=== PATIENT | female | born 1965 | race Asian ===

== ENCOUNTER 2021-07-08 12:11 | Observation (INO) | payer OTHER, SELFPAY ==
[2021-07-08] VITALS (12 sets, daily range): BP systolic 138–167; BP diastolic 72–95; PULSE 55–80; RESP 17–18; TEMP 36.6–36.8; O2SAT 94–99; BMI 22.2
[2021-07-08] MEDS: ONDANSETRON 4 MG/2 ML INJ IV ×2 (12:52→15:55)
[2021-07-08 12:59] LABS: Add Manual Diff / Slide Review NO; Basophils Absolute Auto 100 /uL (0-100); Basophils Percent Auto 0.6 % (0-2); Eosinophils Absolute Auto 0 /uL (0-450); Hemoglobin 15.3 g/dL (12.0-16.0); Lymphocytes Absolute Auto 1000 /uL (1100-4500); Lymphocytes Percent Auto 10.7 % (25-40); Mean Corpuscular Hemoglobin 28.9 PG (26-34); Mean Corpuscular Volume 85.1 fL (80-100); Monocytes Absolute Auto 200 /uL (0-900); Monocytes Percent Auto 2.3 % (3-14); Neutrophils Absolute Auto 7800 /uL (1500-7000); Neutrophils Percent Auto 86.4 % (50-75); Platelet Count 207 X10^3/uL (150-400); Red Blood Cell Count 5.28 X10^6/uL (4.0-5.2); Red Cell Distribution Width 13.1 % (11.6-14.8)
[2021-07-08 13:09] LABS: Alanine Aminotransferase 26 IU/L (<35); Albumin 4.9 g/dL (3.5-5.0); Albumin Globulin Ratio 1.3 (1.0-2.8); Alkaline Phosphatase 75 U/L (38-126); Aspartate Aminotransferase 32 IU/L (14-36); BUN Creatinine Ratio 24.1 (6-22); Bilirubin Total 0.5 mg/dL (0.2-1.3); Blood Urea Nitrogen 14 mg/dL (7-17); Calcium 9.3 mg/dL (8.4-10.2); Carbon Dioxide 25 mmol/L (22-32); Chloride 105 mmol/L (98-107); Estimated Glomerular Filt Rate > 60.0 mL/min (>60); Globulin 3.9 g/dL (1.7-4.1); Glucose 140 mg/dL (70-100); HEMOLYSIS < 15 (0-50); Lipase 150 U/L (23-300); Potassium 3.7 mmol/L (3.4-5.1); Sodium 139 mmol/L (137-145); Total Protein 8.8 g/dL (6.3-8.2)
[2021-07-08 13:16] LABS: Amorphous Sediment Urine 2+; Bacteria Urine None Seen; Culture Indicated Urine Cult Not Indicated; RBC Urine None Seen (0-5/HPF); WBC Urine None Seen (0-5/HPF)
--- NOTE | 2021-07-08 13:42 | DI.CT.S_ITS ---
PROCEDURE: CT HEAD/BRAIN WO CON INDICATIONS: dizzyness TECHNIQUE: Noncontrast 4.5 mm thick angled axial sections acquired from the foramen magnum to the vertex, with coronal and sagittal reformats. For radiation dose reduction, the following was used: automated exposure control, adjustment of mA and/or kV according to patient size. COMPARISON: None. FINDINGS: Image quality: Excellent. CSF spaces: Basal cisterns are patent. No extra-axial fluid collections. Ventricles are normal in size and shape. Brain: No midline shift. No intracranial masses or hemorrhage. Ellison-white matter interface is normal. Skull and face: Calvarium and visualized facial bones are intact, without suspicious lesions. Sinuses: Visualized sinuses and mastoids are clear. IMPRESSION: No acute intracranial process. Dictated by: Shiloh Samuels M.D. on 07/08/2021 at 14:13 Approved by: Shiloh Samuels M.D. on 07/08/2021 at 14:13
--- NOTE | 2021-07-08 15:39 | ED.DIZZY ---
HPI - Dizziness General Chief Complaint: Dizziness Stated Complaint: Vomiting, Sent from [facility] Time Seen by Provider: 07/08/21 14:30 Source: patient Mode of arrival: Ambulatory History of Present Illness HPI Narrative: 55-year-old female nonsmoker without significant chronic medical history presents with her in the chief complaint of significant dizziness since Thursday. She denies any recent trauma or injury, she has had no fever or chills and denies neck pain. She denies other neurologic symptoms such as blurred vision, trouble with speech or extremity numbness, weakness or tingling. She states that she had a rough day on Thursday and rested much of the day and then felt relatively well yesterday and then upon waking today she felt significantly dizzy every time she moved her head. When she moves her head she feels as if the room is spinning and she becomes significantly unsteady and vomits. She denies any recent travel, runny nose, sore throat or cough. She denies any history of the same. Related Data Previous Rx's Medication Instructions Recorded meclizine 25 mg tablet 25 mg PO TID PRN 10 Days #30 tab 07/09/21 ondansetron 4 mg disintegrating 4 mg PO Q8H PRN 30 Days #30 tab 07/09/21 tablet Allergies Allergy/AdvReac Type Severity Reaction Status Date / Time Penicillins [PENICILLINS] Allergy Intermediate hives Verified 07/09/21 10:45 Review of Systems Review of Systems Narrative: GENERAL: Denies chills, fatigue, malaise, fever, sweats. HEENT: Denies sinus pain, ear pain, sore throat, difficulty swallowing, dizziness. RESPIRATORY: Denies dyspnea, cough, wheezing, hemoptysis, sputum. CARDIOVASCULAR: Denies chest pain, palpitations, orthopnea, edema, GASTROINTESTINAL: Denies nausea, vomiting, abdominal pain, diarrhea, constipation, melena. : Denies dysuria, frequency, incontinence, hematuria, urinary retention. MUSCULOSKELETAL: denies weakness, joint pain, or bony pain SKIN: Denies rash, skin lesions, or other NEUROLOGIC: See HPI PSYCHIATRIC: No concerning psychosocial issues. 12 point review of systems is negative except for those stated above Patient History Surgical History Status post bilateral salpingo-oophorectomy (BSO) (03/02/17) Status post delivery Status post hysterectomy (03/02/17) Status post tubal ligation Social History household members: spouse alcohol intake frequency: holidays/special occasions only Substance Use Type: does not use Exam Narrative Exam Narrative: GENERAL: [55] year old patient appears stated age. Well-developed patient, in mild distress. Holding an emesis bag HEAD: Atraumatic. Normocephalic. EYES: Pupils equal round and reactive. Extraocular motions intact. No scleral icterus. No injection or drainage. ENT: Nose without bleeding, purulent drainage. Throat without erythema, tonsillar hypertrophy or exudate. Airway patent. NECK: Trachea midline. Non tender CARDIOVASCULAR: Regular rate and rhythm without murmurs, gallops, or rubs. RESPIRATORY: Clear to auscultation. Breath sounds equal bilaterally. No wheezes, rales, or rhonchi. GASTROINTESTINAL: Abdomen soft, non-tender, nondistended. EXTREMITIES: No edema or joint tenderness. BACK: Nontender without deformity or crepitance. No flank tenderness. NEURO: AOx3. SKIN: No rash or erythema of visible areas NIH Stroke Scale 1a. LOC: Patient is alert and keenly responsive (0) 1b. LOC Questions: Patient answers both LOC questions accurately (0) 1c. LOC Commands: Patient performs both tasks correctly (0) 2. Best Gaze: Normal (0) 3. Visual: No visual loss (0) 4. Facial palsy: Normal symmetrical movements (0) 5. Motor arm: No drift (0) 6. Motor leg: No drift (0) 7. Limb ataxia: Absent (0) 8. Sensory: Normal (0) 9. Best language: No aphasia; normal (0) 10. Dysarthria: Normal (0) 11. Extinction and inattention: No abnormality (0) NIHSS: 0 Initial Vital Signs Initial Vital Signs: Vital Signs Temperature 97.9 F 07/08/21 12:35 Pulse Rate 66 07/08/21 12:35 Respiratory Rate 18 07/08/21 12:35 Blood Pressure 153/85 H 07/08/21 12:35 Pulse Oximetry 99 07/08/21 12:35 Course Course Course Narrative: No obvious reproducible nystagmus with [place], however she become significantly symptomatic when sitting up. Orders Ordered: Discontinued Medications Acetaminophen (Acetaminophen 325 Mg Tablet) 650 mg PO Q6HR PRN PRN Reason: Pain, Mild (1-3) Last Admin: 07/08/21 20:37 Dose: 650 mg Documented by: VINAY Al Hydrox/Mg Hydrox/Simethicone (Mag Hydrox/Alum/Simeth 30 Ml Udc) 30 ml PO Q6HR PRN PRN Reason: Dyspepsia Calcium Carbonate (Calcium Carbonate 500 Mg Tab) 1,000 mg PO Q4HR PRN PRN Reason: Dyspepsia Enoxaparin Sodium (Enoxaparin 40 Mg/0.4 Ml Syringe) 40 mg SUBCUT DAILY [facility] Last Admin: 07/09/21 09:56 Dose: 40 mg Documented by: DAVEY Sodium Chloride (Normal Saline 0.9%) 1,000 mls @ 1,000 mls/hr IV BOLUS ONE Stop: 07/08/21 16:45 Last Infusion: 07/08/21 16:52 Dose: 0 mls/hr Documented by: Admin: 07/08/21 15:55 Dose: 1,000 mls/hr Documented by: RENA Sodium Chloride (Normal Saline 0.9%) 1,000 mls @ 100 mls/hr IV CONT [facility] Last Admin: 07/09/21 04:50 Dose: 100 mls/hr Documented by: Infusion: 07/09/21 04:50 Dose: 100 mls/hr Documented by: Admin: 07/08/21 20:39 Dose: 100 mls/hr Documented by: VINAY Lorazepam (Lorazepam 2 Mg/Ml Inj) 0.5 mg IV NOW ONE Stop: 07/08/21 18:15 Last Admin: 07/08/21 18:21 Dose: 0.5 mg Documented by: RENA Meclizine HCl (Meclizine Hcl 12.5 Mg Tablet) 50 mg PO NOW ONE Stop: 07/08/21 15:47 Last Admin: 07/08/21 15:55 Dose: 50 mg Documented by: RENA Naloxone HCl (Naloxone 0.4 Mg/Ml Vial) 0.2 mg IV Q2MIN PRN PRN Reason: Opiate Reversal Ondansetron HCl (Ondansetron 4 Mg/2 Ml Inj) 4 mg IV NOW ONE Stop: 07/08/21 12:45 Last Admin: 07/08/21 12:52 Dose: 4 mg Documented by: RENA Ondansetron HCl (Ondansetron 4 Mg/2 Ml Inj) 4 mg IV NOW ONE Stop: 07/08/21 15:47 Last Admin: 07/08/21 15:55 Dose: 4 mg Documented by: RENA Ondansetron HCl (Ondansetron 4 Mg Odt) 4 mg PO Q8HR PRN PRN Reason: Nausea And Vomiting Ondansetron HCl (Ondansetron 4 Mg/2 Ml Inj) 4 mg IV Q8HR PRN PRN Reason: Nausea And Vomiting Pantoprazole Sodium (Pantoprazole 40 Mg Vial) 40 mg IV NOW ONE Stop: 07/08/21 18:15 Last Admin: 07/08/21 18:21 Dose: 40 mg Documented by: RENA Pantoprazole Sodium (Pantoprazole Dr 20 Mg Tablet) 20 mg PO 0600 MATHIEU Last Admin: 07/09/21 06:21 Dose: 20 mg Documented by: VINAY Tramadol HCl (Tramadol 50 Mg Tablet) 50 mg PO Q4H PRN PRN Reason: Pain, Moderate (4-6) Vital Signs Vital signs: Vital Signs - 8 hr 07/08/21 12:35 07/08/21 14:30 07/08/21 15:15 Temperature 97.9 F Pulse Rate 66 65 65 Respiratory Rate 18 18 17 Blood Pressure 153/85 H 167/90 H 153/78 H Pulse Oximetry 99 98 99 07/08/21 16:20 07/08/21 16:35 07/08/21 17:05 Temperature Pulse Rate 66 74 65 Respiratory Rate 18 18 17 Blood Pressure 152/72 H 163/76 H 153/78 H Pulse Oximetry 98 98 99 07/08/21 17:40 07/08/21 18:20 Temperature 98 F Pulse Rate 78 65 Respiratory Rate 18 18 Blood Pressure 153/80 H 147/81 H Pulse Oximetry 98 98 MDM - Dizziness Lab Data Result diagrams: 07/09/21 04:48 07/09/21 04:48 Labs: Lab Results 07/08/21 07/08/21 07/08/21 Range/Units 12:49 12:49 12:49 WBC 9.0 (4.5-11.0) X10^3/uL RBC 5.28 H (4.0-5.2) X10^6/uL Hgb 15.3 (12.0-16.0) g/dL Hct 45.0 (36-46) % MCV 85.1 (80-100) fL MCH 28.9 (26-34) PG MCHC 34.0 (30-36) % RDW 13.1 (11.6-14.8) % Plt Count 207 (150-400) X10^3/uL Neut % (Auto) 86.4 H (50-75) % Lymph % (Auto) 10.7 L (25-40) % [place] % (Auto) 2.3 L (3-14) % Eos % (Auto) 0.0 L (2-4) % Baso % (Auto) 0.6 (0-2) % Neut # (Auto) 7800 H (4133-2405) /uL Lymph # (Auto) 1000 L (7018-0404) /uL [place] # (Auto) 200 (0-900) /uL Eos # (Auto) 0 (0-450) /uL Baso # (Auto) 100 (0-100) /uL Sodium 139 (137-145) mmol/L Potassium 3.7 (3.4-5.1) mmol/L Chloride 105 (98-107) mmol/L Carbon Dioxide 25 (22-32) mmol/L BUN 14 (7-17) mg/dL Creatinine 0.58 (0.52-1.04) mg/dL Estimated GFR > 60.0 (>60) mL/min BUN/Creatinine Ratio 24.1 H (6-22) Glucose 140 H (70-100) mg/dL Calcium 9.3 (8.4-10.2) mg/dL Total Bilirubin 0.5 (0.2-1.3) mg/dL AST 32 (14-36) IU/L ALT 26 (<35) IU/L Alkaline Phosphatase 75 (38-126) U/L Total Protein 8.8 H (6.3-8.2) g/dL Albumin 4.9 (3.5-5.0) g/dL Globulin 3.9 (1.7-4.1) g/dL Albumin/Globulin Ratio 1.3 (1.0-2.8) Lipase 150 (23-300) U/L TSH 0.95 (0.47-4.68) uIU/mL Urine RBC (0-5/HPF) Urine WBC (0-5/HPF) Amorphous Sediment Urine Bacteria (None) Ur Culture Indicated? SARS-CoV-2 (PCR) (Negative) 07/08/21 07/08/21 Range/Units 12:50 18:30 WBC (4.5-11.0) X10^3/uL RBC (4.0-5.2) X10^6/uL Hgb (12.0-16.0) g/dL Hct (36-46) % MCV (80-100) fL MCH (26-34) PG MCHC (30-36) % RDW (11.6-14.8) % Plt Count (150-400) X10^3/uL Neut % (Auto) (50-75) % Lymph % (Auto) (25-40) % [place] % (Auto) (3-14) % Eos % (Auto) (2-4) % Baso % (Auto) (0-2) % Neut # (Auto) (9020-4907) /uL Lymph # (Auto) (0400-5217) /uL [place] # (Auto) (0-900) /uL Eos # (Auto) (0-450) /uL Baso # (Auto) (0-100) /uL Sodium (137-145) mmol/L Potassium (3.4-5.1) mmol/L Chloride (98-107) mmol/L Carbon Dioxide (22-32) mmol/L BUN (7-17) mg/dL Creatinine (0.52-1.04) mg/dL Estimated GFR (>60) mL/min BUN/Creatinine Ratio (6-22) Glucose (70-100) mg/dL Calcium (8.4-10.2) mg/dL Total Bilirubin (0.2-1.3) mg/dL AST (14-36) IU/L ALT (<35) IU/L Alkaline Phosphatase (38-126) U/L Total Protein (6.3-8.2) g/dL Albumin (3.5-5.0) g/dL Globulin (1.7-4.1) g/dL Albumin/Globulin Ratio (1.0-2.8) Lipase (23-300) U/L TSH (0.47-4.68) uIU/mL Urine RBC None seen (0-5/HPF) Urine WBC None seen (0-5/HPF) Amorphous Sediment 2+ Urine Bacteria None seen (None) Ur Culture Indicated? Cult not indicated SARS-CoV-2 (PCR) Negative (Negative) Point of Care Testing Test Results Negative Urine Dip Bedside Urine Glucose Negative Bedside Urine Bilirubin - Negative Bedside Urine Ketone - Negative Urine Specific [place] 1.015 Bedside Urine Occult Blood - Negative Bedside Urine pH 7.5 Bedside Urine Protein + 30 Bedside Urine Urobilinogen - Negative Bedside Urine Nitrite - Negative Bedside Urine Leukocytes - Negative Esterase Imaging Data CT scan - head: Radiologist's Impression: Belinda Estevez??55??F??1965 ? Allergy/Adv: Penicillins Close Head/Neck CTA (Signed) NaaMike - 07/08/[address] (Signed) Shiloh Samuels - 07/08/21 [place] [address] CT Scan Report Signed Patient: Belinda Estevez MR#: [id number] : 1965 Acct:[id number] Age/Sex: 55 / F Date of Service: 07/08/21 Loc: ED Accession Number: [id number] ?? Procedure: CT head/brain wo con Ordering Provider: Narciso Martinez P.A-C PROCEDURE:? CT HEAD/BRAIN WO CON ? INDICATIONS:? dizzyness ? TECHNIQUE:? Noncontrast 4.5 mm thick angled axial sections acquired from the foramen magnum to the vertex, with coronal and sagittal reformats.? For radiation dose reduction, the following was used:? automated exposure control, adjustment of mA and/or kV according to patient size.? ? COMPARISON:? None. ? FINDINGS:? Image quality:? Excellent.? ? CSF spaces:? Basal cisterns are patent.? No extra-axial fluid collections.? Ventricles are normal in size and shape.? ? Brain:? No midline shift.? No intracranial masses or hemorrhage.? Ellison-white matter interface is normal.? ? Skull and face:? Calvarium and visualized facial bones are intact, without suspicious lesions.? ? Sinuses:? Visualized sinuses and mastoids are clear.? ? IMPRESSION:? No acute intracranial process. ? Dictated by: Shiloh Samuels M.D. on 07/08/2021 at 14:13 ? ? Approved by: Shiloh Samuels M.D. on 07/08/2021 at 14:13 ? Launch?Image [address] [address] [address] Scan Report Signed Patient: Belinda Estevez MR#: [id number] : 1965 Acct:[id number] Age/Sex: 55 / F Date of Service: 07/08/21 Loc: ED Accession Number: [id number] ?? Procedure: CT angio head and neck Ordering Provider: Jan Cunningham D.O. PROCEDURE:? CT ANGIO HEAD AND NECK ? INDICATIONS:? worsening dizziness ? TECHNIQUE:? Noncontrast images were performed earlier in the day and not repeated.? ? After the administration of intravenous contrast, 1 mm thick sections acquired from the aortic arch through the [place].? Post-contrast 4.5 mm thick sections then re-acquired from the foramen magnum to the vertex.? 3-dimensional yzfnfqa-oqitlveeb-guqrinpcxj (MIP) and/or volume rendering reformats were acquired of the central intracranial vasculature and neck separately. For radiation dose reduction, the following was used:? automated exposure control, adjustment of mA and/or kV according to patient size.? ? COMPARISON:? [facility], CT, CT HEAD/BRAIN WO CON, 07/08/2021, 14:02. ? FINDINGS:? Image quality:? Excellent.? ? BRAIN:? CSF spaces:? Ventricles are normal in size and shape.? Basal cisterns are patent.? No extra-axial fluid collections.? ? Brain:? No midline shift.? No intracranial bleeds or masses.? Ellison-white matter interface appears intact.? ? Skull and face:? Calvarium and facial bones appear intact, without suspicious lesions.? Orbits appear normal.? ? Sinuses:? Sinuses and mastoids are clear.? ? HEAD CT ANGIOGRAPHY:? Anterior circulation:? Intracranial internal carotid arteries are normal in size and flow.? The flow within the paired anterior cerebral arteries is normal and symmetric.? The flow within the middle cerebral arteries is normal and symmetric.? The anterior communicating artery is seen.? No aneurysms are seen.? ? Posterior circulation:? Visualized portions of the vertebral arteries demonstrate normal caliber, and join to form a normal appearing basilar artery.? Flow within the posterior cerebral arteries is normal and symmetric.? No aneurysms are seen.? ? NECK CT ANGIOGRAPHY:? Carotid system:? The great vessels demonstrate a conventional anatomy as they arise from the aortic arch.? The origins of the common carotid arteries appear patent.? The common carotid arteries demonstrate normal caliber and courses.? The bifurcation regions are both widely patent.? The internal carotid arteries demonstrate normal calibers and courses.? ? Posterior circulation:? The origins of the vertebral arteries both appear widely patent.? The more superior extracranial portions of both vertebral arteries also demonstrate normal courses and calibers.? They join to form a normal appearing basilar artery.? ? Soft tissues:? Visualized neck soft tissues demonstrate no suspicious abnormalities.? ? Bones:? No suspicious bony lesions.? Visualized cervical spine appears normally aligned.? IMPRESSION:? ? No imaging explanation is found for this patient's presenting symptoms.? ? No significant intracranial arterial abnormality is seen.? ? Within the arteries of the neck, no hemodynamically significant stenosis can be seen. ? No findings of dissection can be seen. ? Any quantitative measurements of stenosis were performed using NASCET criteria.? ? ? Dictated by: Mike Jacome M.D. on 07/08/2021 at 16:40 ? ? Approved by: Mike Jacome M.D. on 07/08/2021 at 16:43 ? [facility] Narrative Medical decision making narrative: Patient presents with profound dizziness associated with motion and vomiting. Much of her history physical would suggest a peripheral element, however no obvious reproducible nystagmus is noted. She has had advanced imaging without any evidence of stroke or bleed. She has been given Zofran, meclizine and Ativan and is still quite symptomatic and unable to ambulate safely. She will require hospitalization for further workup and evaluation of possible posterior circulation stroke. Discharge Plan Departure Patient Disposition: Admitted as Observation Clinical Impression: Dizziness Admit Date/Time: 07/08/21 19:43 Admit Provider: Peter Victor
[2021-07-08] MEDS: SODIUM CHLORIDE 0.9% 1,000 ML 1000 ML IV (15:55)
[2021-07-08] MEDS: MECLIZINE HCL 12.5 MG TABLET 50 MG PO (15:55)
--- NOTE | 2021-07-08 16:52 | PC.NURSE ---
very unsteady, very dizzy to stand, holding on to , unable to ambulate independantly
--- NOTE | 2021-07-08 16:53 | DI.CT.S_ITS ---
PROCEDURE: CT ANGIO HEAD AND NECK INDICATIONS: worsening dizziness TECHNIQUE: Noncontrast images were performed earlier in the day and not repeated. After the administration of intravenous contrast, 1 mm thick sections acquired from the aortic arch through the [place]. Post-contrast 4.5 mm thick sections then re-acquired from the foramen magnum to the vertex. 3-dimensional opmkmjn-tulxtyxqx-cmuatqaibf (MIP) and/or volume rendering reformats were acquired of the central intracranial vasculature and neck separately. For radiation dose reduction, the following was used: automated exposure control, adjustment of mA and/or kV according to patient size. COMPARISON: [facility], CT, CT HEAD/BRAIN WO CON, 07/08/2021, 14:02. FINDINGS: Image quality: Excellent. BRAIN: CSF spaces: Ventricles are normal in size and shape. Basal cisterns are patent. No extra-axial fluid collections. Brain: No midline shift. No intracranial bleeds or masses. Ell[place]-white matter interface appears intact. Skull and face: Calvarium and facial bones appear intact, without suspicious lesions. Orbits appear normal. Sinuses: Sinuses and mastoids are clear. HEAD CT ANGIOGRAPHY: Anterior circulation: Intracranial internal carotid arteries are normal in size and flow. The flow within the paired anterior cerebral arteries is normal and symmetric. The flow within the middle cerebral arteries is normal and symmetric. The anterior communicating artery is seen. No aneurysms are seen. Posterior circulation: Visualized portions of the vertebral arteries demonstrate normal caliber, and join to form a normal appearing basilar artery. Flow within the posterior cerebral arteries is normal and symmetric. No aneurysms are seen. NECK CT ANGIOGRAPHY: Carotid system: The great vessels demonstrate a conventional anatomy as they arise from the aortic arch. The origins of the common carotid arteries appear patent. The common carotid arteries demonstrate normal caliber and courses. The bifurcation regions are both widely patent. The internal carotid arteries demonstrate normal calibers and courses. Posterior circulation: The origins of the vertebral arteries both appear widely patent. The more superior extracranial portions of both vertebral arteries also demonstrate normal courses and calibers. They join to form a normal appearing basilar artery. Soft tissues: Visualized neck soft tissues demonstrate no suspicious abnormalities. Bones: No suspicious bony lesions. Visualized cervical spine appears normally aligned. IMPRESSION: No imaging explanation is found for this patient's presenting symptoms. No significant intracranial arterial abnormality is seen. Within the arteries of the neck, no hemodynamically significant stenosis can be seen. No findings of dissection can be seen. Any quantitative measurements of stenosis were performed using NASCET criteria. Dictated by: Mike Jacome M.D. on 07/08/2021 at 16:40 Approved by: Mike Jacome M.D. on 07/08/2021 at 16:43
[2021-07-08] MEDS: PANTOPRAZOLE 40 MG VIAL IV (18:21)
[2021-07-08] MEDS: LORazepam 2 MG/ML INJ 0.5 MG IV (18:21)
[2021-07-08 18:57] LABS: COVID19 -Nasal RAPID Negative (Negative)
--- NOTE | 2021-07-08 19:29 | PC.NURSE ---
Dr Victor at [facility]
--- NOTE | 2021-07-08 19:35 | PC.NURSE ---
report given to malathi huo, awaiting room to be cleaned.
--- NOTE | 2021-07-08 19:52 | P.HP_ITS ---
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 Two days ago developed acute vertigo in the morning out of nowhere and was basically stuck in bed with emesis all day. worsened with exertion e.g. trying to pick something up. Yesterday she felt better was able to eat and drink was not dizzy able to get up do some housework. Today vertigo and emesis recurred this morning and have persisted through the day. She has felt a bit better with antiemetics and no longer feels need to vomit however still is very dizzy on standing. She did receive ativan and is now relaxed but still dizzy. allergic to penicillin hx of hysterectomy lives with Fede. Patient History Surgical History Status post bilateral salpingo-oophorectomy (BSO) (03/02/17) Status post delivery Status post hysterectomy (03/02/17) Status post tubal ligation Family & Social History Safety & Behavioral: Feels Safe in Current Yes Environment Been Physically Hurt or No Threatened By a Person Tobacco & Substance use: alcohol intake frequency holiday/special occasion Substance Use Type does not use Meds Home Medications and Allergies Home Medications Medication Instructions Recorded Confirmed Type ibuprofen 600 mg tablet 600 mg PO QID PRN #0 01/21/17 History oxycodone-acetaminophen 5 mg-325 0 tab PO Q4HP PRN #30 03/04/17 Rx mg tablet Allergies Allergy/AdvReac Type Severity Reaction Status Date / Time Penicillins [PENICILLINS] Allergy Mild hives Verified 07/08/21 12:52 Review of Systems Review of Systems Narrative: all systems reviewed and negative except as otherwise documented in HPI Exam Vital Signs (past 8 hours): - 07/08/21 12:35 07/08/21 14:30 07/08/21 15:15 Temperature 97.9 F Pulse Rate 66 65 65 Pulse Rate [Orthostatic Lying] Pulse Rate [Orthostatic Sitting] Pulse Rate [Orthostatic Standing] Respiratory Rate 18 18 17 Blood Pressure 153/85 H 167/90 H 153/78 H Blood Pressure [Orthostatic Lying] Blood Pressure [Orthostatic Sitting] Blood Pressure [Orthostatic Standing] Pulse Oximetry 99 98 99 07/08/21 16:20 07/08/21 16:35 07/08/21 17:05 Temperature Pulse Rate 66 74 65 Pulse Rate [Orthostatic Lying] Pulse Rate [Orthostatic Sitting] Pulse Rate [Orthostatic Standing] Respiratory Rate 18 18 17 Blood Pressure 152/72 H 163/76 H 153/78 H Blood Pressure [Orthostatic Lying] Blood Pressure [Orthostatic Sitting] Blood Pressure [Orthostatic Standing] Pulse Oximetry 98 98 99 07/08/21 17:40 07/08/21 18:20 07/08/21 19:02 Temperature 98 F Pulse Rate 78 65 80 Pulse Rate [Orthostatic Lying] 68 Pulse Rate [Orthostatic Sitting] 78 Pulse Rate [Orthostatic Standing] 80 Respiratory Rate 18 18 18 Blood Pressure 153/80 H 147/81 H Blood Pressure [Orthostatic Lying] 138/76 Blood Pressure [Orthostatic Sitting] 140/84 Blood Pressure [Orthostatic Standing] 154/95 H Pulse Oximetry 98 98 96 07/08/21 19:04 07/08/21 19:32 Temperature Pulse Rate 80 62 Pulse Rate [Orthostatic Lying] Pulse Rate [Orthostatic Sitting] Pulse Rate [Orthostatic Standing] Respiratory Rate 18 18 Blood Pressure 154/94 H 153/85 H Blood Pressure [Orthostatic Lying] Blood Pressure [Orthostatic Sitting] Blood Pressure [Orthostatic Standing] Pulse Oximetry 96 98 Oxygen Delivery Method Room Air Narrative Exam Narrative: curled up on [facility] with emesis bag Const General: cooperative, well developed and in distress [facility] Head: normal to inspection, normocephalic and atraumatic Eyes General: appearance normal, both eyes and all related structures Resp Effort & Inspection: normal respiratory effort and able to speak in complete sentences Auscultation: clear to auscultation bilaterally Cardio Rate: regular rate Rhythm: regular rhythm Heart Sounds: S1 normal and S2 normal GI Palpation: No tender Auscultation: normal bowel sounds Skin General: no rashes or lesions noted Neuro Other: Romberg grossly abnormal patient falls backward with eyes closed. strength is 5/5 reports normal sensation in all limbs CN 2-12 grossly normal but gait is clearly abnormal she lists to both sides clear fall risk. Alert and oriented x3. no nystagmus noted. Extrem General: normal to inspection, full ROM and no pedal edema Psych Appearance: grossly normal and well kempt Speech and Movement: speech clear, delayed speech and slowed movement Attitude: cooperative Thought Process: normal Thought Content: normal Objective Labs Result Diagrams: 07/08/21 12:49 07/08/21 12:49 Labs: Laboratory Results - last 24 hr 07/08/21 07/08/21 07/08/21 12:49 12:49 12:50 WBC 9.0 RBC 5.28 H Hgb 15.3 Hct 45.0 MCV 85.1 MCH 28.9 MCHC 34.0 RDW 13.1 Plt Count 207 Neut % (Auto) 86.4 H Lymph % (Auto) 10.7 L [place] % (Auto) 2.3 L Eos % (Auto) 0.0 L Baso % (Auto) 0.6 Neut # (Auto) 7800 H Lymph # (Auto) 1000 L [place] # (Auto) 200 Eos # (Auto) 0 Baso # (Auto) 100 Sodium 139 Potassium 3.7 Chloride 105 Carbon Dioxide 25 BUN 14 Creatinine 0.58 Estimated GFR > 60.0 BUN/Creatinine Ratio 24.1 H Glucose 140 H Calcium 9.3 Total Bilirubin 0.5 AST 32 ALT 26 Alkaline Phosphatase 75 Total Protein 8.8 H Albumin 4.9 Globulin 3.9 Albumin/Globulin Ratio 1.3 Lipase 150 Urine RBC None seen Urine WBC None seen Amorphous Sediment 2+ Urine Bacteria None seen Ur Culture Indicated? Cult not indicated SARS-CoV-2 (PCR) 07/08/21 18:30 WBC RBC Hgb Hct MCV MCH MCHC RDW Plt Count Neut % (Auto) Lymph % (Auto) [place] % (Auto) Eos % (Auto) Baso % (Auto) Neut # (Auto) Lymph # (Auto) [place] # (Auto) Eos # (Auto) Baso # (Auto) Sodium Potassium Chloride Carbon Dioxide BUN Creatinine Estimated GFR BUN/Creatinine Ratio Glucose Calcium Total Bilirubin AST ALT Alkaline Phosphatase Total Protein Albumin Globulin Albumin/Globulin Ratio Lipase Urine RBC Urine WBC Amorphous Sediment Urine Bacteria Ur Culture Indicated? SARS-CoV-2 (PCR) Negative Assessment & Plan Assessment & Plan narrative: #vertigo with nausea/vomiting persistent issue she is not safe d/c clear fall risk Initial labs reveal only some mild neutrophilia otherwise no obvious sources for this issue does not seem to be consistent with BPPV triggered more by exertion/upright posture may be central issue if persistent in the morning will get MRI for possible stroke BP has been pretty consistent her orthostatics have been unconcerning initial CT was wnl. PT/OT eval/tx media monitor for now continue prn antiemetics with some IVF she has been working very hard 7 days a week concedes she is getting tired lately work is very stressful for her Dispo: admit obs for now, persistent symptoms not safe to go home now needs PT/OT eval etiology unclear needs further observation/workup code: Full DVT: Lovenox MDM: Fede [id number] diet: Clears, ADAT Time Spent With Patient Critical Care time: I spent a total of [] minutes of critical care time on this patient's care today; this time is exclusive of procedural time.
[2021-07-08] MEDS: ACETAMINOPHEN 325 MG TABLET 650 MG PO (20:37)
[2021-07-08] MEDS: SODIUM CHLORIDE 0.9% 1,000 ML 100 ML IV (20:39)
[2021-07-09 00:11] LABS: TSH w/ Reflex to FT4 0.95 uIU/mL (0.47-4.68)
[2021-07-09 02:39] VITALS: BP 144/75; PULSE 57; RESP 16; TEMP 36.6; O2SAT 97
[2021-07-09] MEDS: SODIUM CHLORIDE 0.9% 1,000 ML 100 ML IV (04:50)
[2021-07-09 05:09] LABS: Hemoglobin 14.5 g/dL (12.0-16.0); Mean Corpuscular HGB Conc 33.7 % (30-36); Mean Corpuscular Hemoglobin 28.9 PG (26-34); Mean Corpuscular Volume 85.8 fL (80-100); Platelet Count 188 X10^3/uL (150-400); Red Blood Cell Count 5.01 X10^6/uL (4.0-5.2); Red Cell Distribution Width 13.6 % (11.6-14.8); White Blood Cell Count 6.6 X10^3/uL (4.5-11.0)
[2021-07-09 05:43] LABS: Alanine Aminotransferase 21 IU/L (<35); Albumin Globulin Ratio 1.3 (1.0-2.8); Alkaline Phosphatase 57 U/L (38-126); Aspartate Aminotransferase 24 IU/L (14-36); BUN Creatinine Ratio 15.4 (6-22); Bilirubin Total 0.8 mg/dL (0.2-1.3); Blood Urea Nitrogen 10 mg/dL (7-17); Calcium 8.9 mg/dL (8.4-10.2); Carbon Dioxide 26 mmol/L (22-32); Chloride 108 mmol/L (98-107); Estimated Glomerular Filt Rate > 60.0 mL/min (>60); Globulin 3.1 g/dL (1.7-4.1); Glucose 100 mg/dL (70-100); HEMOLYSIS < 15 (0-50); Potassium 3.8 mmol/L (3.4-5.1); Sodium 143 mmol/L (137-145); Total Protein 7.1 g/dL (6.3-8.2)
[2021-07-09] MEDS: PANTOPRAZOLE DR 20 MG TABLET PO (06:21)
[2021-07-09 07:00] VITALS: BP 135/80; PULSE 62; RESP 19; TEMP 36.9; O2SAT 99
--- NOTE | 2021-07-09 07:15 | DI.MRI.S_ITS ---
PROCEDURE: MR HEAD/BRAIN WO CON INDICATIONS: profound dizziness TECHNIQUE: Noncontrast axial T1 spin echo, axial T2 fast spin echo, sagittal and axial FLAIR, coronal T2 fast spin echo, axial gradient echo, axial diffusion and ADC through the brain. COMPARISON: [facility], CT, CT ANGIO HEAD AND NECK, 07/08/2021, 17:00. [facility], CT, CT HEAD/BRAIN WO CON, 07/08/2021, 14:02. FINDINGS: Image quality: Excellent. CSF Spaces: Basal cisterns are patent. No extra-axial fluid collections. Ventricles are normal in size and shape. Brain: No intracranial masses or hemorrhage. Ellison/white matter interface is normal. Brainstem appears normal. Diffusion-weighted images demonstrate no acute ischemic insult. No chronic ischemic insults. Normal intravascular flow voids are present. Skull and face: Calvarium has normal marrow signal. Orbits appear normal. Sinuses: Sinuses and mastoids are clear. IMPRESSION: 1. No acute intracranial disease process. 2. No areas of acute or chronic infarction. 3. No abnormal intracranial mass or mass effect. 4. No intracranial hemorrhage. Dictated by: Viviane Kumar MD, PhD on 07/09/2021 at 9:16 Approved by: Viviane Kumar MD, PhD on 07/09/2021 at 9:19
[2021-07-09] MEDS: ENOXAPARIN 40 MG/0.4 ML SYRINGE SUBCUT (09:56)
--- NOTE | 2021-07-09 10:23 | PM.DS.1 ---
History of Present Illness History of Present Illness Date Patient Seen: 07/09/21 Time Patient Seen: 10:23 Chief complaint: Vomiting, Sent from [facility] Narrative: Per Dr. 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 Two days ago developed acute vertigo in the morning out of nowhere and was basically stuck in bed with emesis all day.? worsened with exertion e.g. trying to pick something up. Yesterday she felt better was able to eat and drink was not dizzy able to get up do some housework.? Today vertigo and emesis recurred this morning and have persisted through the day. She has felt a bit better with antiemetics and no longer feels need to vomit however still is very dizzy on standing. She did receive ativan and is now relaxed but still dizzy.? allergic to penicillin hx of hysterectomy lives with Fede. Discharge Providers Provider Date of admission: 07/08/21 19:43 Discharge Date: 07/09/21 Primary care physician: Brynn Mason DO Consults: 07/08/21 19:50 Consult to Occupational Therapy Evaluate & Treat Comment: Physician Instructions: Evaluate and treat Consult to Physical Therapy Evaluate & Treat Comment: Physician Instructions: Evaluate and Treat Discharge provider: Elton Oliver DO Summary Hospital Course Discharge Diagnosis: 1. Dizziness, improved. Probable peripheral vertigo. Hospital Course: This is a 55-year-old female with no known past medical problems who was admitted with intractable nausea and vomiting with concern for a possible central cause. Head CT and CT angiogram were unremarkable as was an MRI stroke protocol. The morning after admission the patient had complete improvement in her symptoms and was able to ambulate in the hallways without significant dizziness at all. She was given a prescription for meclizine and Zofran for probable peripheral vertigo. She was recommended to remain off of work for a couple of days and rest. Recommend that if her symptoms return she follow-up with outpatient vestibular therapy. No further evaluation is necessary at this time. Patient was discharged home. Exam Vital Signs (past 8 hours): - 07/09/21 02:39 07/09/21 07:00 Temperature 97.8 F 98.4 F Pulse Rate 57 L 62 Respiratory Rate 16 19 Blood Pressure 144/75 H 135/80 Pulse Oximetry 97 99 Oxygen Delivery Method Room Air Narrative Exam Narrative: General:? Patient is well developed and well nourished, in no distress at this time. HEENT:? Normocephalic, atraumatic, extraocular muscles intact, oral pharynx is clear and mucous membranes are moist. Neck: supple and symmetric, trachea is midline, no cervical adenopathy. Negative for JVD Chest:? Normal AP diameter and contour without kyphoscoliosis, no tachypnea, equal chest rise bilaterally. Lungs:? CTA b/l no wheezing rhonchi or rales. Cardio:?RRR no m/r/g. Abdomen: S NT ND. No CVA tenderness. Musculoskeletal:? Muscle strength and tone are equal within normal limits, no deformity. Extremities: No edema or joint effusions. No cyanosis or clubbing. Skin:? Pale,? Warm to touch,dry and intact without rashes, ulcerations or petechiae.? Neuro:? Alert and orientated x3,? sensation to touch intact in all extremities, no gross deficits noted of cranial nerves. Psych:? Patient has a well-kept appearance, appropriate affect, mental status attitude thought context and judgment are appropriate for age. Objective Labs Result Diagrams: 07/09/21 04:48 07/09/21 04:48 Labs: Laboratory Results - last 24 hr 07/08/21 07/08/21 07/08/21 12:49 12:49 12:49 WBC 9.0 RBC 5.28 H Hgb 15.3 Hct 45.0 MCV 85.1 MCH 28.9 MCHC 34.0 RDW 13.1 Plt Count 207 Neut % (Auto) 86.4 H Lymph % (Auto) 10.7 L [place] % (Auto) 2.3 L Eos % (Auto) 0.0 L Baso % (Auto) 0.6 Neut # (Auto) 7800 H Lymph # (Auto) 1000 L [place] # (Auto) 200 Eos # (Auto) 0 Baso # (Auto) 100 Sodium 139 Potassium 3.7 Chloride 105 Carbon Dioxide 25 BUN 14 Creatinine 0.58 Estimated GFR > 60.0 BUN/Creatinine Ratio 24.1 H Glucose 140 H Calcium 9.3 Total Bilirubin 0.5 AST 32 ALT 26 Alkaline Phosphatase 75 Total Protein 8.8 H Albumin 4.9 Globulin 3.9 Albumin/Globulin Ratio 1.3 Lipase 150 TSH 0.95 Urine RBC Urine WBC Amorphous Sediment Urine Bacteria Ur Culture Indicated? SARS-CoV-2 (PCR) 07/08/21 07/08/21 07/09/21 12:50 18:30 04:48 WBC 6.6 RBC 5.01 Hgb 14.5 Hct 43.0 MCV 85.8 MCH 28.9 MCHC 33.7 RDW 13.6 Plt Count 188 Neut % (Auto) Lymph % (Auto) [place] % (Auto) Eos % (Auto) Baso % (Auto) Neut # (Auto) Lymph # (Auto) [place] # (Auto) Eos # (Auto) Baso # (Auto) Sodium Potassium Chloride Carbon Dioxide BUN Creatinine Estimated GFR BUN/Creatinine Ratio Glucose Calcium Total Bilirubin AST ALT Alkaline Phosphatase Total Protein Albumin Globulin Albumin/Globulin Ratio Lipase TSH Urine RBC None seen Urine WBC None seen Amorphous Sediment 2+ Urine Bacteria None seen Ur Culture Indicated? Cult not indicated SARS-CoV-2 (PCR) Negative 07/09/21 04:48 WBC RBC Hgb Hct MCV MCH MCHC RDW Plt Count Neut % (Auto) Lymph % (Auto) [place] % (Auto) Eos % (Auto) Baso % (Auto) Neut # (Auto) Lymph # (Auto) [place] # (Auto) Eos # (Auto) Baso # (Auto) Sodium 143 Potassium 3.8 Chloride 108 H Carbon Dioxide 26 BUN 10 Creatinine 0.65 Estimated GFR > 60.0 BUN/Creatinine Ratio 15.4 Glucose 100 Calcium 8.9 Total Bilirubin 0.8 AST 24 ALT 21 Alkaline Phosphatase 57 Total Protein 7.1 Albumin 4.0 Globulin 3.1 Albumin/Globulin Ratio 1.3 Lipase TSH Urine RBC Urine WBC Amorphous Sediment Urine Bacteria Ur Culture Indicated? SARS-CoV-2 (PCR) [facility] Surgical History Status post bilateral salpingo-oophorectomy (BSO) (03/02/17) Status post delivery Status post hysterectomy (03/02/17) Status post tubal ligation Social History household members: spouse Discharge Plan Discharge Plan Patient Disposition: Home Discharge orders & Medications Prescriptions: New meclizine 25 mg tablet 25 mg PO TID PRN (Reason: dizziness) 10 Days Qty: 30 0RF ondansetron 4 mg tablet,disintegrating 4 mg PO Q8H PRN (Reason: nausea and vomiting) 30 Days Qty: 30 0RF Follow up/Referrals: Brynn Mason DO [Primary Care Provider] - Diet/Activity/Treatments Diet: Diet as Tolerated Activity: As tolerated Visit Report/Discharge Packet Instructions: Vertigo Discharge Data Primary Care Provider: Brynn Mason Attending Provider: Elton Oliver
--- NOTE | 2021-07-09 12:33 | PT.IIE ---
Surgical History (Last Reviewed 07/08/21 @ 19:57 by Peter Victor MD) Status post bilateral salpingo-oophorectomy (BSO) (03/02/17) Status post delivery Status post hysterectomy (03/02/17) Status post tubal ligation Physical Therapy Inpatient Evaluation/Re-Eval M1 PT/OT-IP Prior Functional Status Start: 07/09/21 08:49 Freq: NEEDED Status: Active Protocol: Document 07/09/21 12:33 AW (Rec: 07/09/21 12:52 AW [id number]) Medical Review Prior Functional Status Medical History Reviewed Yes Communication WNL. Pt is an effective verbal communicator. Mobility and Gait Independent. Activities of Daily Living and IADL's Independent including driving. Social History Household Members spouse Living Arrangements Mobile home Number of Floors (Floors) One Floor Number of Stairs To Enter/Railing? 3 [place] with L rail ascending Home Environment Standard Height Toilet,Tub/ Shower,Built-In Shower Seat Employment Status Cementer Employed Additional Social History Comment Pt works 10-hour shifts every day except Thursday. She lives with her spouse, Fdee. M2 PT-IP Current Condition Start: 07/09/21 08:49 Freq: NEEDED Status: Active Protocol: Document 07/09/21 12:33 AW (Rec: 07/09/21 12:52 AW [id number]) Physical Therapy Current Condition Current Condition Evaluation Date 07/09/21 Treatment Diagnosis dizziness, decreased balance; difficulty in walking Onset Date 07/06/21 M3 PT-IP Subjective Start: 07/09/21 08:49 Freq: NEEDED Status: Active Protocol: Document 07/09/21 12:33 AW (Rec: 07/09/21 12:52 AW [id number]) Subjective Physical Therapy Visit Type Type Initial Evaluation Visit Start Time 12:16 Visit Stop Time 12:33 Total Visit Minutes 17 Notes Pt's spouse was present throughout the evaluation. Per EMR, pt has not had any meclizine today. Physical Therapy Visit Comments Patient Comments Pt is willing to participate with PT Patient Goals Return home. Return to work without dizziness. Therapy Pain Assessment Pain When Pain Assessed During Mobility Pain Present Pain Present Denied Pain M4 PT-IP Mobility and Gait Start: 07/09/21 08:49 Freq: NEEDED Status: Active Protocol: Document 07/09/21 12:33 AW (Rec: 07/09/21 12:52 AW [id number]) PT-Bed Mobility Assessment Supine to Sit Supine to Sit Independent Scooting Scooting to Edge of Bed Independent PT-Transfer Assessment Sit to and From Stand Sit to and from Stand Independent,Use of Upper Extremities Equipment Transfer Assistive Device None,Gait Belt Orthotic/Prosthetic Devices or Brace: No Transfers Transfer Destination Bed,Chair Transfer Technique Stand Step Pivot Transfer Ability Level of Assist Independent Comments Mobility Comments Pt was lying in bed as PT arrived. BP 135/80 HR 60. She sat up EOB and participated in oculomotor and vestibular screening which were grossly normal. Pt denied dizziness. She stood with no evidence of imbalance. She walked in the halls a total of 250 feet without AD. She completed 4- item DGI with score of 03/10. On return to the room, she sat on the chair and then returned to sitting EOB with lunch tray set up for her. She was left with call light in reach. Gait Assessment Gait Gait Assistance Required: Independent,Standby Assistance Distance (Feet) 250 Assistive Devices Assistive Device None,Gait Belt Orthotic/Prosthetic Devices or Brace: No Gait Deviations General Gait Pattern Within Normal Limits Comments Gait Comments See mobility comments for details. Stair Climbing Assessment Evaluation Level of Assist On Stairs Independent Devices Stair Climbing Assistive Devices Left Railing Technique/Endurance Stair Climbing Direction Ascend and Descend Stair Climbing Technique Step Over Step Number of Steps Climbed 3 Query Text: Stair Climbing Set # Repetitions (reps) 2 PT-Balance Assessment Sitting Balance and Reactions Static Sitting Balance Ability Normal Dynamic Sitting Balance Ability Normal Standing Balance and Reactions Static Standing Balance Ability Normal Dynamic Standing Balance Ability Normal Balance Tests Romberg WNL EO and EC Functional Assessments Functional Tests Dynamic Gait Index 4-item DGI: 03/10 M5 PT-IP Objective Assessments Start: 07/09/21 08:49 Freq: NEEDED Status: Active Protocol: Document 07/09/21 12:33 AW (Rec: 07/09/21 12:52 AW [id number]) Orientation Orientation/Cognition Level of Alertness Alert Orientation Name,Day of Week,Place, Situation Language Function Ability No Deficits Noted Safety Awareness Understands Safety Issues Memory Description No Deficits Noted Gross Range of Motion Upper Extremity ROM Assessment Within Functional Limits Lower Extremity ROM Assessment Within Functional Limits Strength Upper Extremity Strength Assessment Within Functional Limits Lower Extremity Strength Assessment Within Functional Limits Coordination Assessment Gross Coordination Gross Coordination WNL Assessment Finger to Nose Test Normal Performance Sensation Assessment Sensation Gross Sensation WNL Muscle Tone Muscle Tone WNL Yes Other Assessments Other Other Assessments Oculomotor and vestibular screens were grossly normal without evidence of nystagmus. Pt demonstrated good gaze stability on head impulse test . M6 PT-IP Treatment Start: 07/09/21 08:49 Freq: NEEDED Status: Active Protocol: Document 07/09/21 12:33 AW (Rec: 07/09/21 12:52 AW [id number]) Physical Therapy Treatment Other Treatments Other Treatment Performed Educated pt to seek referral to outpatient vestibular PT if dizziness recurs. M7 PT-IP Assessment and Plan Start: 07/09/21 08:49 Freq: NEEDED Status: Active Protocol: Document 07/09/21 12:33 AW (Rec: 07/09/21 12:52 AW [id number]) PT Summary Assessment and Plan Potential Rehabilitation Potential Good Status of Condition at Evaluation Evolving Summary Impairments Balance,Transfers,Gait Assessment Summary Belinda is an active and independent 55 yo woman with sudden onset dizziness and decreased balance beginning three days ago. She presented to ED on Thursday with continued symptoms but all are resolved today. She describes persisten dizziness (not episodic) which is inconsistent with positional vertigo. She denies any recent infections; vestibular neuritis is not likely. On evaluation today, pt was independent with all mobilities and needed SBA only for dynamic balance challenges. She scored 12/12 on 4-item DGI which is specific for vestibular pathology. Pt is safe to discharge home with assist and is instructed to seek referral to outpatient vestibular PT if symptoms recur. Frequency of Treatment Frequency Of Treatment Discharge Recommendations To Nursing Amount of Assist Needed Standby Assistance Discharge Recommendations PT Discharge Recommendations Home with Assistance Transportation Needs at Discharge Private Vehicle
--- NOTE | 2021-07-09 12:53 | OT.IPNOTE ---
Pt being discharged and has no OT needs, therefore discharge OT eval orders.
== END 2021-07-09 13:05 | disposition home or self-care (01) ==
LOC: ED 19:08 → AC 19:43
PROVIDERS: Admitting Provider Family Medicine; Emergency Provider Emergency Medicine; PCP Family Medicine; Visit Provider Internal Medicine
DX: R42 Dizziness and giddiness (principal); R11.2 Nausea with vomiting, unspecified; R29.700 NIHSS score 0; Z20.822 Contact with and (suspected) exposure to COVID-19
CPT/HCPCS: 36415; 70450; 70496; 70498; 70551; 80053; 81003; 81015; 81025; 83690; 84443; 85025; 85027; 87635; 93005; 93010; 96361; 96372; 96374; 96375; 96376; 97162; 99284; 99285; C9803; G0378; C9113; J1650; J2060; J2405; Q9967